=== PATIENT | female | born 1955 | race Caucasian/White ===

== ENCOUNTER 2021-09-14 15:19 | Inpatient (IN) | payer MEDICARE, OTHER ==
[2021-09-14 16:03] LABS: #Lymphocytes 0.8 thou/uL (1.20-3.40); #Monocytes 0.8 thou/uL (0.11-0.59); #Neutrophils 11.2 thou/uL (1.40-6.50); %Basophils 0.2 % (0.0-1.0); %Eosinophils 0.1 % (0.0-10.0); %Lymphocytes 6.3 % (21.0-51.0); %Monocytes 5.8 % (0.0-10.0); %Neutrophils 87.6 % (42.0-75.0); Hemoglobin 16.1 g/dL (12.0-16.0); Mean Corpuscular HGB CONC 33.9 g/dL (32.0-36.0); Mean Corpuscular Hemoglobin 32.2 pg (27.0-31.0); Mean Corpuscular Volume 95.1 fL (78.0-98.0); Mean Platelet Volume 6.5 fL (7.4-10.4); Platelet Count 268 thou/uL (130-400); RBC Distribution Width 11.8 % (11.5-14.5); Red Blood Cell (RBC) Count 4.98 mill/uL (4.20-5.40); White Blood Cell (WBC) Count 12.8 thou/uL (4.8-10.8)
[2021-09-14 16:25] LABS: ALT (SGPT) 20 U/L (8-55); AST (SGOT) 20 U/L (5-34); Albumin 4.4 g/dL (3.4-4.8); Alkaline Phosphatase 75 U/L (40-110); Anion Gap 20 mmol/L (10-20); BUN (Urea Nitrogen) 19 mg/dL (9.8-20.1); Bilirubin, Total 0.7 mg/dL (0.2-1.2); Calc. Creatinine Clearance 0 mL/min (70-130); Calcium 9.3 mg/dL (7.8-10.44); Carbon Dioxide 18 mmol/L (23-31); Chloride 97 mmol/L (98-107); Globulin 3.3 g/dL (2.4-3.5); Glucose 111 mg/dL (80-115); Potassium 4.3 mmol/L (3.5-5.1); Protein, Total 7.7 g/dL (5.8-8.1); Sodium 131 mmol/L (136-145)
[2021-09-14] MEDS ORDERED: Dexamethasone 10 MG/ML VIAL ONE (16:30)
[2021-09-14] MEDS ORDERED: Ketorolac Tromethamine 30 MG/ML VIAL ONE (16:30)
[2021-09-14] MEDS ORDERED: Acetaminophen 500 MG TAB ONE (16:30)
[2021-09-14] MEDS ORDERED: Albuterol Sulfate 2.5 mg/0.5 ml Neb ONE (16:37)
[2021-09-14] MEDS ORDERED: Azithromycin 500 MG VIAL ONE (17:00)
[2021-09-14] MEDS ORDERED: cefTRIAXone\\ROCEPHIN 1 GM VIAL ONE (17:02)
[2021-09-14] MEDS ORDERED: Senokot S 8.6-50 MG TAB PO PRN (18:40)
[2021-09-14] MEDS ORDERED: Acetaminophen 325 MG TAB PO PRN (18:40)
[2021-09-14] MEDS ORDERED: Ondansetron ODT 4 MG TAB PO PRN (18:40)
[2021-09-14 19:00] LABS: SARS-CoV-2 NAA Rapid Test DETECTED (NotDetected)
[2021-09-14] MEDS ORDERED: Albuterol 200 PUFF (6.7GM INHALER) INH PRN (20:07)
[2021-09-14] MEDS: Sodium Chloride 0.9% 1,000 ML IV SCH (20:28)
[2021-09-14] MEDS ORDERED: Nicotine 14 MG PATCH ONE (21:24)
[2021-09-14] MEDS ORDERED: Albuterol 200 PUFF (6.7GM INHALER) ONE (21:24)
[2021-09-14] MEDS: Nicotine 14 MG PATCH TD SCH (21:29)
[2021-09-14] MEDS: Albuterol 200 PUFF (6.7GM INHALER) INH SCH (23:09)
[2021-09-15 01:08] VITALS: BMI 36.3
[2021-09-15] MEDS: Albuterol 200 PUFF (6.7GM INHALER) INH SCH ×6 (01:43→22:20)
[2021-09-15] MEDS ORDERED: FLU VACC QS2021-22(65YR UP)/PF 240 MCG/0.7 ML SYRINGE IM ONE (09:00)
[2021-09-15] MEDS ORDERED: Dexamethasone 10 MG/ML VIAL SLOW IVP SCH (09:00)
[2021-09-15] MEDS: Ascorbic Acid 500 mg Chewable Tablet PO SCH (09:16)
[2021-09-15] MEDS: Zinc Sulfate 220 MG CAP PO SCH (09:16)
[2021-09-15] MEDS: Benzonatate 100 MG CAP PO PRN ×2 (09:16→21:24)
[2021-09-15] MEDS: Enoxaparin Sodium 40 MG/0.4 ML SYRINGE SC SCH (09:17)
[2021-09-15] MEDS: Sodium Chloride 0.9% 1,000 ML IV SCH (09:17)
[2021-09-15] MEDS ORDERED: Mometasone 200 MCG/Formoterol 5 MCG 120 PUFF INHALER INH SCH (11:15)
[2021-09-15 11:18] LABS: #Lymphocytes 0.8 thou/uL (1.20-3.40); #Monocytes 0.4 thou/uL (0.11-0.59); #Neutrophils 9.3 thou/uL (1.40-6.50); %Basophils 0.2 % (0.0-1.0); %Eosinophils 0.2 % (0.0-10.0); %Lymphocytes 7.8 % (21.0-51.0); %Monocytes 4.2 % (0.0-10.0); %Neutrophils 87.7 % (42.0-75.0); Mean Corpuscular HGB CONC 31.7 g/dL (32.0-36.0); Mean Corpuscular Hemoglobin 30.5 pg (27.0-31.0); Mean Corpuscular Volume 96.4 fL (78.0-98.0); Mean Platelet Volume 6.7 fL (7.4-10.4); Platelet Count 259 thou/uL (130-400); RBC Distribution Width 11.7 % (11.5-14.5); Red Blood Cell (RBC) Count 4.58 mill/uL (4.20-5.40); White Blood Cell (WBC) Count 10.6 thou/uL (4.8-10.8)
[2021-09-15 11:34] LABS: Anion Gap 14 mmol/L (10-20); BUN (Urea Nitrogen) 18 mg/dL (9.8-20.1); Calc. Creatinine Clearance 123 mL/min (70-130); Calcium 8.7 mg/dL (7.8-10.44); Carbon Dioxide 20 mmol/L (23-31); Chloride 107 mmol/L (98-107); Glucose 145 mg/dL (80-115); Potassium 4.1 mmol/L (3.5-5.1); Sodium 137 mmol/L (136-145)
[2021-09-15 15:06] LABS: Bacteria/HPF None Seen HPF (None Seen); Bilirubin Negative (Negative); Blood, Urine Trace (Negative); Clarity Clear (Clear); Glucose, Urine (Dipstick) Normal (Negative); Ketone, Urine 20 mg/dL (Negative); Leukocyte Negative Leu/uL (Negative); Nitrite Negative (Negative); Protein, Urine (Dipstick) Negative (Neg-Trace); RBC/HPF 0-3 HPF (0-3); Specific Gravity, Urine 1.015 (1.002-1.036); Squamous Epithelial None Seen HPF (0-3); Urobilinogen Normal mg/dL (Less than 2); WBC/HPF 0-3 HPF (0-3); pH, Urine 5.5 (5.0-9.0)
[2021-09-15] MEDS: Dexamethasone 4 MG TAB PO SCH (17:58)
[2021-09-15] MEDS: Mometasone 200 MCG/Formoterol 5 MCG 120 PUFF INHALER INH SCH (17:59)
[2021-09-15] MEDS: guaiFENesin 200 MG TAB PO PRN ×2 (17:59→22:47)
[2021-09-15] MEDS: cefTRIAXone\\ROCEPHIN 1 GM in Sodium Chloride 0.9% 100 ML IVPB SCH (17:59)
[2021-09-15] MEDS: Azithromycin 500 MG in Sodium Chloride 0.9% 250 ML 250 ML IVPB SCH (17:59)
[2021-09-15] MEDS ORDERED: Pharmacy to Dose REMDESIVIR IVPB PRN (18:00)
[2021-09-15] MEDS ORDERED: REMDESIVIR 200 MG in Sodium Chloride 0.9% 250 ML 210 ML IV SCH (18:15)
[2021-09-15] MEDS: Nicotine 14 MG PATCH TD SCH (21:17)
[2021-09-15 23:15] LABS: Legionella Urinary Ag Negative (Negative); Strep pneumo Urine Ag NEGATIVE (NEGATIVE)
[2021-09-16] MEDS: Albuterol 200 PUFF (6.7GM INHALER) INH SCH ×6 (03:41→21:44)
[2021-09-16] MEDS: Mometasone 200 MCG/Formoterol 5 MCG 120 PUFF INHALER INH SCH ×2 (06:18→17:19)
[2021-09-16] MEDS: Benzonatate 100 MG CAP PO PRN ×2 (06:36→21:39)
[2021-09-16 06:53] LABS: Hemoglobin A1c 6.3 % (4.0-6.0)
[2021-09-16 06:54] LABS: #Lymphocytes 0.9 thou/uL (1.20-3.40); #Monocytes 0.5 thou/uL (0.11-0.59); #Neutrophils 7.9 thou/uL (1.40-6.50); %Basophils 0.3 % (0.0-1.0); %Eosinophils 0.1 % (0.0-10.0); %Lymphocytes 9.6 % (21.0-51.0); %Monocytes 4.8 % (0.0-10.0); %Neutrophils 85.2 % (42.0-75.0); Hemoglobin 13.9 g/dL (12.0-16.0); Mean Corpuscular HGB CONC 32.2 g/dL (32.0-36.0); Mean Corpuscular Volume 96.3 fL (78.0-98.0); Mean Platelet Volume 6.8 fL (7.4-10.4); Platelet Count 288 thou/uL (130-400); RBC Distribution Width 11.8 % (11.5-14.5); White Blood Cell (WBC) Count 9.3 thou/uL (4.8-10.8)
[2021-09-16 07:09] LABS: Anion Gap 15 mmol/L (10-20); BUN (Urea Nitrogen) 18 mg/dL (9.8-20.1); CRP (Inflammatory) 9.55 mg/dL (= or < 0.5); Calc. Creatinine Clearance 110 mL/min (70-130); Calcium 8.7 mg/dL (7.8-10.44); Carbon Dioxide 23 mmol/L (23-31); Chloride 106 mmol/L (98-107); Glucose 135 mg/dL (80-115); Magnesium 2.6 mg/dL (1.6-2.6); Potassium 4.1 mmol/L (3.5-5.1); Sodium 140 mmol/L (136-145)
[2021-09-16 07:10] LABS: Cardiac Risk 5.4 (Less than 4.5); Cholesterol 200 mg/dl (< 200 Desired); HDL Cholesterol 37 mg/dL (>60 Neg Risk); LDL Cholesterol, Calculated 133 mg/dL; Phosphorus 2.4 mg/dL (2.3-4.7); Triglycerides 151 mg/dL (Less than 150)
[2021-09-16] MEDS: Ascorbic Acid 500 mg Chewable Tablet PO SCH (08:32)
[2021-09-16] MEDS: Enoxaparin Sodium 40 MG/0.4 ML SYRINGE SC SCH (08:32)
[2021-09-16] MEDS: Zinc Sulfate 220 MG CAP PO SCH (08:32)
[2021-09-16] MEDS: Bupropion 150 MG XL TAB PO SCH (08:32)
[2021-09-16] MEDS: Dexamethasone 4 MG TAB PO SCH ×2 (08:32→15:42)
[2021-09-16] MEDS ORDERED: Non-Formulary Item 1 EACH (Fluticasone/Umeclidin/Vilanter [Trelegy Ellipta 100-62.5-25] 1 INH SCH (09:00)
[2021-09-16] MEDS: guaiFENesin 200 MG TAB PO PRN ×3 (09:44→21:39)
[2021-09-16 13:20] LABS: ALT (SGPT) 23 U/L (8-55); AST (SGOT) 26 U/L (5-34); Albumin 3.9 g/dL (3.4-4.8); Alkaline Phosphatase 66 U/L (40-110); Bilirubin, Direct 0.2 mg/dL (0.1-0.3); Bilirubin, Total 0.3 mg/dL (0.2-1.2); Protein, Total 7.3 g/dL (5.8-8.1)
[2021-09-16] MEDS: Azithromycin 500 MG in Sodium Chloride 0.9% 250 ML 250 ML IVPB SCH (15:42)
[2021-09-16] MEDS ORDERED: cefTRIAXone\\ROCEPHIN 1 GM VIAL ONE (17:11)
[2021-09-16] MEDS: cefTRIAXone\\ROCEPHIN 1 GM in Sodium Chloride 0.9% 100 ML IVPB SCH (17:18)
[2021-09-16] MEDS ORDERED: REMDESIVIR 100 MG in Sodium Chloride 0.9% 250 ML 230 ML IV SCH ×2 (18:00→20:00)
[2021-09-16] MEDS: Nicotine 14 MG PATCH TD SCH (21:20)
[2021-09-16] MEDS: REMDESIVIR 100 MG in Sodium Chloride 0.9% 250 ML 230 ML IV SCH (21:20)
[2021-09-16] MEDS ORDERED: Melatonin 3 MG TAB PO SCH (21:45)
[2021-09-17] MEDS: Albuterol 200 PUFF (6.7GM INHALER) INH SCH ×6 (03:11→22:08)
[2021-09-17] MEDS: Mometasone 200 MCG/Formoterol 5 MCG 120 PUFF INHALER INH SCH ×2 (06:10→17:58)
[2021-09-17 07:41] LABS: #Basophils 0.1 thou/uL (0.0-0.2); #Lymphocytes 1.2 thou/uL (1.20-3.40); #Monocytes 0.7 thou/uL (0.11-0.59); #Neutrophils 5.9 thou/uL (1.40-6.50); %Basophils 0.9 % (0.0-1.0); %Eosinophils 0.1 % (0.0-10.0); %Lymphocytes 15.5 % (21.0-51.0); %Monocytes 8.6 % (0.0-10.0); %Neutrophils 74.9 % (42.0-75.0); Mean Corpuscular HGB CONC 32.5 g/dL (32.0-36.0); Mean Corpuscular Hemoglobin 31.1 pg (27.0-31.0); Mean Corpuscular Volume 95.7 fL (78.0-98.0); Mean Platelet Volume 6.6 fL (7.4-10.4); Platelet Count 260 thou/uL (130-400); RBC Distribution Width 11.8 % (11.5-14.5); Red Blood Cell (RBC) Count 4.17 mill/uL (4.20-5.40); White Blood Cell (WBC) Count 7.9 thou/uL (4.8-10.8)
[2021-09-17 08:11] LABS: ALT (SGPT) 26 U/L (8-55); AST (SGOT) 22 U/L (5-34); Albumin 3.5 g/dL (3.4-4.8); Alkaline Phosphatase 59 U/L (40-110); Bilirubin, Direct 0.1 mg/dL (0.1-0.3); Bilirubin, Total 0.2 mg/dL (0.2-1.2); Protein, Total 6.6 g/dL (5.8-8.1)
[2021-09-17] MEDS: Dexamethasone 4 MG TAB PO SCH ×2 (09:19→16:07)
[2021-09-17] MEDS: Bupropion 150 MG XL TAB PO SCH (09:19)
[2021-09-17] MEDS: Ascorbic Acid 500 mg Chewable Tablet PO SCH (09:20)
[2021-09-17] MEDS: Enoxaparin Sodium 40 MG/0.4 ML SYRINGE SC SCH (09:20)
[2021-09-17] MEDS: Zinc Sulfate 220 MG CAP PO SCH (09:20)
[2021-09-17] MEDS: Benzonatate 100 MG CAP PO PRN (09:25)
[2021-09-17 10:50] LABS: Anion Gap 17 mmol/L (10-20); BUN (Urea Nitrogen) 21 mg/dL (9.8-20.1); Calc. Creatinine Clearance 116 mL/min (70-130); Calcium 8.3 mg/dL (7.8-10.44); Carbon Dioxide 20 mmol/L (23-31); Chloride 106 mmol/L (98-107); Glucose 133 mg/dL (80-115); Magnesium 2.5 mg/dL (1.6-2.6); Phosphorus 2.9 mg/dL (2.3-4.7); Potassium 4.2 mmol/L (3.5-5.1); Sodium 139 mmol/L (136-145)
[2021-09-17] MEDS: guaiFENesin 200 MG TAB PO PRN (13:35)
[2021-09-17] MEDS: Azithromycin 500 MG in Sodium Chloride 0.9% 250 ML 250 ML IVPB SCH (16:06)
[2021-09-17] MEDS: cefTRIAXone\\ROCEPHIN 1 GM in Sodium Chloride 0.9% 100 ML IVPB SCH (17:58)
[2021-09-17] MEDS: REMDESIVIR 100 MG in Sodium Chloride 0.9% 250 ML 230 ML IV SCH (20:35)
[2021-09-17] MEDS: guaiFENesin ER 600 MG TAB PO SCH (20:35)
[2021-09-17] MEDS: Nicotine 14 MG PATCH TD SCH (20:35)
[2021-09-17] MEDS ORDERED: Melatonin 3 MG TAB PO SCH (22:15)
[2021-09-18] MEDS: Benzonatate 100 MG CAP PO PRN ×3 (00:12→22:00)
[2021-09-18] MEDS: Albuterol 200 PUFF (6.7GM INHALER) INH SCH ×6 (02:37→21:56)
[2021-09-18] MEDS: Mometasone 200 MCG/Formoterol 5 MCG 120 PUFF INHALER INH SCH ×2 (05:48→17:54)
[2021-09-18] MEDS: Zinc Sulfate 220 MG CAP PO SCH (08:31)
[2021-09-18] MEDS: Dexamethasone 4 MG TAB PO SCH ×2 (08:31→16:57)
[2021-09-18] MEDS: Enoxaparin Sodium 40 MG/0.4 ML SYRINGE SC SCH (08:32)
[2021-09-18] MEDS: guaiFENesin ER 600 MG TAB PO SCH ×2 (08:32→20:36)
[2021-09-18] MEDS: Bupropion 150 MG XL TAB PO SCH (08:32)
[2021-09-18] MEDS: Ascorbic Acid 500 mg Chewable Tablet PO SCH (08:32)
[2021-09-18] MEDS ORDERED: Loperamide HCl 1 MG/7.5 ML UDCUP PO PRN (10:09)
[2021-09-18 10:17] LABS: #Eosinphils 0.1 thou/uL (0.0-0.7); #Lymphocytes 1.6 thou/uL (1.20-3.40); #Monocytes 0.8 thou/uL (0.11-0.59); #Neutrophils 4.8 thou/uL (1.40-6.50); %Basophils 0.5 % (0.0-1.0); %Eosinophils 0.8 % (0.0-10.0); %Lymphocytes 22.7 % (21.0-51.0); %Monocytes 10.4 % (0.0-10.0); %Neutrophils 65.6 % (42.0-75.0); Hemoglobin 14.8 g/dL (12.0-16.0); Mean Corpuscular HGB CONC 32.3 g/dL (32.0-36.0); Mean Corpuscular Hemoglobin 30.9 pg (27.0-31.0); Mean Corpuscular Volume 95.7 fL (78.0-98.0); Mean Platelet Volume 6.6 fL (7.4-10.4); Platelet Count 309 thou/uL (130-400); RBC Distribution Width 11.8 % (11.5-14.5); Red Blood Cell (RBC) Count 4.78 mill/uL (4.20-5.40); White Blood Cell (WBC) Count 7.2 thou/uL (4.8-10.8)
[2021-09-18 10:33] LABS: ALT (SGPT) 32 U/L (8-55); AST (SGOT) 20 U/L (5-34); Albumin 3.9 g/dL (3.4-4.8); Alkaline Phosphatase 62 U/L (40-110); Bilirubin, Direct 0.2 mg/dL (0.1-0.3); Bilirubin, Total 0.4 mg/dL (0.2-1.2); Protein, Total 7.2 g/dL (5.8-8.1)
[2021-09-18 10:47] LABS: Anion Gap 15 mmol/L (10-20); BUN (Urea Nitrogen) 19 mg/dL (9.8-20.1); Calc. Creatinine Clearance 113 mL/min (70-130); Calcium 8.8 mg/dL (7.8-10.44); Carbon Dioxide 24 mmol/L (23-31); Chloride 101 mmol/L (98-107); Glucose 108 mg/dL (80-115); Magnesium 2.5 mg/dL (1.6-2.6); Phosphorus 2.2 mg/dL (2.3-4.7); Potassium 3.4 mmol/L (3.5-5.1); Sodium 137 mmol/L (136-145)
[2021-09-18] MEDS ORDERED: Potassium Chloride 20 MEQ TAB PO SCH (12:15)
[2021-09-18] MEDS ORDERED: Loperamide HCl 2 MG CAP PO SCH (12:15)
[2021-09-18 14:01] VITALS: TEMP 97.9
[2021-09-18] MEDS: Azithromycin 500 MG in Sodium Chloride 0.9% 250 ML 250 ML IVPB SCH (16:57)
[2021-09-18] MEDS: cefTRIAXone\\ROCEPHIN 1 GM in Sodium Chloride 0.9% 100 ML IVPB SCH (16:57)
[2021-09-18] MEDS: REMDESIVIR 100 MG in Sodium Chloride 0.9% 250 ML 230 ML IV SCH (20:36)
[2021-09-18] MEDS: Nicotine 14 MG PATCH TD SCH (20:36)
[2021-09-18] MEDS ORDERED: Temazepam 15 MG CAP PO SCH (21:00)
[2021-09-18] MEDS ORDERED: Melatonin 3 MG TAB PO SCH (22:00)
[2021-09-19] MEDS: guaiFENesin 200 MG TAB PO PRN (00:55)
[2021-09-19] MEDS: Albuterol 200 PUFF (6.7GM INHALER) INH SCH ×3 (01:54→12:00)
[2021-09-19] MEDS: Benzonatate 100 MG CAP PO PRN (05:18)
[2021-09-19] MEDS: Mometasone 200 MCG/Formoterol 5 MCG 120 PUFF INHALER INH SCH (05:35)
[2021-09-19 08:18] LABS: #Basophils 0.1 thou/uL (0.0-0.2); #Eosinphils 0.2 thou/uL (0.0-0.7); #Lymphocytes 1.6 thou/uL (1.20-3.40); #Monocytes 0.8 thou/uL (0.11-0.59); #Neutrophils 6.2 thou/uL (1.40-6.50); %Basophils 1.3 % (0.0-1.0); %Eosinophils 2.5 % (0.0-10.0); %Lymphocytes 18.2 % (21.0-51.0); %Monocytes 8.7 % (0.0-10.0); %Neutrophils 69.3 % (42.0-75.0); Anion Gap 15 mmol/L (10-20); BUN (Urea Nitrogen) 17 mg/dL (9.8-20.1); Calc. Creatinine Clearance 119 mL/min (70-130); Calcium 8.3 mg/dL (7.8-10.44); Carbon Dioxide 22 mmol/L (23-31); Chloride 103 mmol/L (98-107); Glucose 138 mg/dL (80-115); Hemoglobin 14.5 g/dL (12.0-16.0); Magnesium 2.4 mg/dL (1.6-2.6); Mean Corpuscular HGB CONC 32.2 g/dL (32.0-36.0); Mean Corpuscular Hemoglobin 30.6 pg (27.0-31.0); Mean Corpuscular Volume 94.9 fL (78.0-98.0); Mean Platelet Volume 6.6 fL (7.4-10.4); Phosphorus 2.2 mg/dL (2.3-4.7); Platelet Count 342 thou/uL (130-400); Potassium 3.7 mmol/L (3.5-5.1); RBC Distribution Width 11.7 % (11.5-14.5); Red Blood Cell (RBC) Count 4.74 mill/uL (4.20-5.40); Sodium 136 mmol/L (136-145); White Blood Cell (WBC) Count 8.9 thou/uL (4.8-10.8)
[2021-09-19 08:30] LABS: AST (SGOT) 16 U/L (5-34); Alkaline Phosphatase 63 U/L (40-110); Bilirubin, Direct 0.2 mg/dL (0.1-0.3); Bilirubin, Total 0.4 mg/dL (0.2-1.2); Protein, Total 6.9 g/dL (5.8-8.1)
[2021-09-19 08:31] LABS: ALT (SGPT) 31 U/L (8-55)
[2021-09-19 08:59] VITALS: BP 123/68
[2021-09-19] MEDS: Ascorbic Acid 500 mg Chewable Tablet PO SCH (09:20)
[2021-09-19] MEDS: Zinc Sulfate 220 MG CAP PO SCH (09:20)
[2021-09-19] MEDS: Dexamethasone 4 MG TAB PO SCH (09:20)
[2021-09-19] MEDS: Bupropion 150 MG XL TAB PO SCH (09:21)
[2021-09-19] MEDS: Enoxaparin Sodium 40 MG/0.4 ML SYRINGE SC SCH (09:21)
[2021-09-19] MEDS ORDERED: REMDESIVIR 100 MG in Sodium Chloride 0.9% 250 ML 230 ML IV SCH (11:30)
[2021-09-19] MEDS: guaiFENesin ER 600 MG TAB PO SCH (12:27)
== END 2021-09-19 15:08 | disposition home or self-care (01) | DRG 177 ==
LOC: ERS 15:19 → ERHOLD 17:35 → T4-B 09-15 00:24
PROVIDERS: ADMIT Family Medicine; ATTEND Family Medicine
PROC: 8E0ZXY6 Isolation (ICD-10-PCS; 2021-09-14)
PROC: XW033E5 Introduction of Remdesivir Anti-infective into Peripheral Vein, Percutaneous Approach, New Technology Group 5 (ICD-10-PCS; principal; 2021-09-15)
DX: U07.1 COVID-19 (principal); J12.82 Pneumonia due to coronavirus disease 2019; J96.01 Acute respiratory failure with hypoxia; J44.1 Chronic obstructive pulmonary disease with (acute) exacerbation; J44.0 Chronic obstructive pulmonary disease with (acute) lower respiratory infection; E87.1 Hypo-osmolality and hyponatremia; A08.39 Other viral enteritis; R73.03 Prediabetes; E66.9 Obesity, unspecified; F17.210 Nicotine dependence, cigarettes, uncomplicated; Z71.6 Tobacco abuse counseling; Z68.36 Body mass index [BMI] 36.0-36.9, adult
CPT/HCPCS: 36415; 71045; 80048; 80053; 80061; 80076; 81001; 83036; 83605; 83630; 83735; 83880; 84100; 84145; 84436; 84443; 84484; 85025; 85652; 86140; 87040; 87045; 87046; 87324; 87427; 87449; 87899; 90471; 90662; 90732; 93005; 94664; 94760; G0008; G0009; J0456; J0696; J1100; J1650; J1885; J3490; J7050; J7611; J7620; J8540; U0002